=== PATIENT | female | born 1985 | race Caucasian/White ===

== ENCOUNTER 2016-09-05 13:32 | Day surgery (SDC) | payer OTHER ==
[~2016-09-05] VITALS: Ht 157.5 cm; Wt 108.0 kg
[~2016-09-05 13:32] MED LIST: FISH OIL PO; GLUCOSAMINE PO; IBUP200T48 PO; IMITREX PO; METF500T4 PO; MULT-6 PO; OXYC-302 PO; [UNRECOGNIZED DRUG - OTHER] PO
[2016-09-05] MEDS ORDERED: LACTATED RINGERS 1,000 ML IV SCH (14:01)
[2016-09-05 14:29] VITALS: BP 139/88
[2016-09-05] MEDS ORDERED: METF100010 PO (14:35)
[2016-09-05] MEDS ORDERED: FENTANYL PF 100 MCG/2ML ONE ×3 (14:56→16:28)
[2016-09-05] MEDS ORDERED: PROPOFOL 10 MG/ML, 50ML ONE (15:28)
[2016-09-05] MEDS ORDERED: MISOPROSTOL 200 MCG TABLET ONE (15:48)
[2016-09-05] MEDS ORDERED: OXYTOCIN 10 UNITS/ML, 1ML ONE (15:48)
[2016-09-05] MEDS ORDERED: METHYLERGONOVINE 0.2 MG/ML IM ONE (15:48)
[2016-09-05] MEDS ORDERED: SILVER NITRATE STICK TP ONE (15:48)
[2016-09-05] MEDS ORDERED: OXYcodone 5 MG/5 ML ORAL.SOL UDC ONE (16:28)
[2016-09-05] MEDS ORDERED: ACETAMINOPHEN 650 MG/20.3 ML UDC ONE (16:28)
[2016-09-05] MEDS ORDERED: FENTANYL PF 100 MCG/2ML IV PRN (16:30)
[2016-09-05] MEDS ORDERED: hydrALAzine 20 MG/ML, 1ML IV PRN (16:30)
[2016-09-05] MEDS ORDERED: MIDAZOLAM 1 MG/ML, 2ML IV PRN (16:30)
[2016-09-05] MEDS ORDERED: MEPERIDINE/PF 25MG/0.5ML IVPush PRN (16:30)
[2016-09-05] MEDS ORDERED: PROMETHAZINE 25 MG/ML, 1ML IV PRN (16:30)
[2016-09-05] MEDS ORDERED: OXYcodone 5 MG/5 ML ORAL.SOL UDC PO PRN (16:30)
[2016-09-05] MEDS ORDERED: HYDROmorphone 1 MG/ML, 1ML IV PRN (16:30)
[2016-09-05] MEDS ORDERED: ONDANSETRON 2MG/ML, 2ML IVPush PRN (16:30)
[2016-09-05] MEDS ORDERED: LABETALOL 5MG/ML, 20ML IV PRN (16:30)
== END 2016-09-05 17:40 | disposition home or self-care (01) ==
LOC: OR 13:32
PROVIDERS: ATTEND Obstetrics & Gynecology
DX: O02.1 Missed abortion (principal); Z3A.01 Less than 8 weeks gestation of pregnancy; E66.9 Obesity, unspecified; Z68.41 Body mass index [BMI] 40.0-44.9, adult; E28.2 Polycystic ovarian syndrome
CPT/HCPCS: 36415; 59820; 85025; 86850; 86900; 88305; J2210; J3010; J7120; J2704; J2590